=== PATIENT | female | born 1995 | race Caucasian/White ===

== ENCOUNTER 2017-12-16 16:42 | Emergency (ER) | payer SELFPAY ==
--- NOTE | 2017-12-16 16:53 | EDM.PDOC ---
ED HPI GENERAL MEDICAL PROBLEM - General Chief Complaint: Respiratory Problem Stated Complaint: POSS ASTHMA ATTACK Time Seen by Provider: 12/16/17 16:52 Source of Information: Reports: Patient - History of Present Illness INITIAL COMMENTS - FREE TEXT/NARRATIVE: Patient is here today for evaluation of asthma flare. She states that she has had this chronically, when she was in [place] she was on daily inhalers and rescue inhaler. Patient also notes that she has allergies. She did take allergy medication this morning but does not feel that this helped. She is feeling short of breath and wheezing. Denies any recent illness. Denies any cough or sinus symptoms. She denies any other chronic medical conditions and is not on daily medication. - Related Data Allergies Allergy/AdvReac Type Severity Reaction Status Date / Time seasonal Allergy Difficulty Uncoded 12/16/17 16:55 Breathing Home Meds: Home Meds Albuterol Sulfate [Ventolin Hfa] 8 gm IH Q4HR #1 hfa.aer.ad 12/16/17 [Rx] Montelukast [Singulair] 10 mg PO DAILY #30 tab 12/16/17 [Rx] ED ROS GENERAL - Review of Systems Review Of Systems: See Below Constitutional: Denies: Fever, Chills, Malaise, Weakness, Decreased Appetite HEENT: Reports: No Symptoms Respiratory: Reports: Shortness of Breath, Wheezing. Denies: Pleuritic Chest Pain, Cough, Sputum Cardiovascular: Reports: No Symptoms GI/Abdominal: Reports: No Symptoms Skin: Reports: No Symptoms Neurological: Reports: No Symptoms Psychiatric: Reports: No Symptoms ED EXAM, GENERAL - Physical Exam Exam: See Below Exam Limited By: No Limitations General Appearance: Alert, WD/WN, Mild Distress Ears: Normal External Exam, Normal Canal, Normal TMs Throat/Mouth: Normal Inspection, Normal Lips, Normal Oropharynx Head: Atraumatic, Normocephalic Neck: Normal Inspection, Supple, Non-Tender. No: Lymphadenopathy (L), Lymphadenopathy (R) Respiratory/Chest: Chest Non-Tender, Respiratory Distress (Mild), Wheezing ( Diffuse moderate wheezing on inspiration but worse on expiration.). No: Crackles, Rales, Rhonchi, Retractions, Prolonged Expiration Cardiovascular: Normal Peripheral Pulses, Regular Rate, Rhythm, No Murmur Neurological: Alert, Oriented, Normal Reflexes, No Motor/Sensory Deficits Psychiatric: Normal Affect, Normal Mood Skin Exam: Warm, Dry, Intact Course - Vital Signs Last Recorded V/S: Last Vital Signs Temp 97.5 F 12/16/17 16:52 Pulse 121 H 12/16/17 19:00 Resp 20 12/16/17 19:00 BP 131/99 H 12/16/17 19:00 Pulse Ox 95 12/16/17 19:00 - Orders/Labs/Meds Orders: Active Orders 24 hr Category Date Time Status RT Aerosol Therapy [RC] ASDIRECTED Care 12/16/17 17:11 Active CXR [Chest 2V] [CR] Stat Exams 12/16/17 17:48 Taken Meds: Medications Discontinued Medications Generic Name Dose Route Start Last Admin Trade Name Freq PRN Reason Stop Dose Admin Albuterol/Ipratropium 3 ml 12/16/17 17:11 12/16/17 17:16 Duoneb 3.0-0.5 Mg/3 Ml NEB 12/16/17 17:12 3 ml ONETIME ONE Administration - Re-Assessments/Exams Free Text/Narrative Re-Assessment/Exam: Patient had significant improvement with DuoNeb treatment. Upon re- auscultation patient had occasional scattered wheeze, oxygen saturation were 99- 100% on room air. Chest x-ray is unremarkable, I do not visualize any infiltrates or consolidation. Official radiology report is pending. Options were discussed at length with the patient, as her symptoms are primarily linked to allergies will start daily Singulair and give her a when necessary albuterol inhaler. I do not feel oral steroids are indicated. The option was discussed for a daily inhaler as an alternative, however due to cost patient declines this. Patient will establish with a PCP at [facility] or certainly return to the emergency room if needed. 12/16/17 19:21 Departure - Departure Time of Disposition: 18:44 Disposition: Home, Self-Care 01 Condition: Good Clinical Impression: Acute asthma Asthma Qualifiers: Asthma severity: moderate Asthma complication type: with acute exacerbation - Discharge Information Prescriptions: Albuterol Sulfate [Ventolin Hfa] 8 gm IH Q4HR #1 hfa.aer.ad Montelukast [Singulair] 10 mg PO DAILY #30 tab Instructions: Asthma, Adult Referrals: PCP,Not In Area [Primary Care Provider] - Forms: ED Department Discharge Additional Instructions: Start Singulair every single day. Continue with her daily [id number] antihistamine for your allergies. Use your albuterol inhaler 1-2 puffs every 4-6 hours as needed for wheezing. You need to establish with a primary provider at [facility]. You can call to schedule this at [phone]. If you have any worsening of symptoms you certainly can return to the emergency room as well. - My Orders Last 24 Hours: My Active Orders 12/16/17 17:11 RT Aerosol Therapy [RC] ASDIRECTED 12/16/17 17:48 CXR [Chest 2V] [CR] Stat - Assessment/Plan Last 24 Hours: My Active Orders 12/16/17 17:11 RT Aerosol Therapy [RC] ASDIRECTED 12/16/17 17:48 CXR [Chest 2V] [CR] Stat
[2017-12-16] MEDS ORDERED: Albuterol/Ipratropium 3.0-0.5 MG/3 ML Neb Soln NEB ONE (17:11)
--- NOTE | 2017-12-18 16:53 | CR ---
Chest: Two views of the chest were obtained. Comparison: No prior chest x-ray. Heart size and mediastinum are normal. Minimal scoliosis noted within the spine. Lungs are clear with no acute parenchymal change. Impression: 1. Nothing acute is seen on two-view chest x-ray. Diagnostic code #2
== END 2017-12-16 19:00 | disposition home or self-care (01) ==
LOC: JD.ED 16:42
DX: J45.901 Unspecified asthma with (acute) exacerbation (principal); Z79.899 Other long term (current) drug therapy; Z91.09 Other allergy status, other than to drugs and biological substances
CPT/HCPCS: 71046; 71046-26; 94640; 99283; 99285-25